=== PATIENT | female | born 1950 | race Caucasian/White ===

== ENCOUNTER 2024-02-20 22:26 | Inpatient (IN) | payer OTHER, MEDICAID ==
[~2024-02-20] VITALS: Ht 154.9 cm; Wt 71.3 kg
[2024-02-20 22:34] VITALS: BP_SYST 158; PULSE 66; RESP 12; RESP 32; TEMP 98.4; O2SAT 96
[2024-02-20] MEDS: ASPIRIN 325 MG TABLET PO ONE (23:00)
[2024-02-20 23:01] LABS: BASOPHILS % (AUTO) 0.4 % (0.0-2.0); EOSINOPHILS # (AUTO) 0.1 K/uL (0.0-0.4); EOSINOPHILS % (AUTO) 0.6 % (0.0-4.0); HEMATOCRIT 42.4 % (36-48); HEMOGLOBIN 14.8 g/dL (12.0-16.0); LYMPHOCYTES % (AUTO) 9.9 % (20.5-51.5); MEAN CORPUSCULAR HEMOGLOBIN 32 pg (27-31); MEAN CORPUSCULAR HGB CONC 35 % (32-36); MEAN CORPUSCULAR VOLUME 91 fL (79.0-98.0); MONOCYTES # (AUTO) 0.9 K/uL (0.0-1.0); MONOCYTES % (AUTO) 9.3 % (1.7-9.3); NEUTROPHILS % (AUTO) 79.8 % (40.0-70.0); PLATELET COUNT (AUTO) 184 K/uL (130-430); RED BLOOD CELL COUNT(AUTO) 4.65 MIL/uL (4.2-6.2); RED CELL DISTRIBUTION WIDTH 13.6 % (9.0-15.0)
[2024-02-20 23:29] LABS: ANION GAP 9 (5-15); CALCIUM 10.3 mg/dL (8.4-11.0); CARBON DIOXIDE 25 mmol/L (23-29); CHLORIDE 104 mmol/L (98-107); CREATININE 0.89 mg/dL (0.55-1.30); GLUCOSE 142 mg/dL (74-106); POTASSIUM 3.5 mmol/L (3.5-5.1); SODIUM SERUM 138 mmol/L (136-145); UREA NITROGEN, BLOOD 16 mg/dL (8-21)
[2024-02-21] VITALS (8 sets, daily range): BP systolic 112–134; PULSE 66–78; RESP 16–20; TEMP 97–98.7; O2SAT 97–98
[2024-02-21 00:14] LABS: PROTHROMBIN TIME 10.7 SECS (9.5-12.5)
[2024-02-21] MEDS ORDERED: ONDANSETRON HCL 4 MG/2 ML VIAL IVP PRN (00:30)
[2024-02-21] MEDS ORDERED: IBUP-1969 PO (00:43)
[2024-02-21] MEDS ORDERED: OMEG10006 PO (00:43)
[2024-02-21] MEDS ORDERED: HYDR25TA4 PO (00:43)
[2024-02-21] MEDS ORDERED: LOSA100T24 PO (00:43)
[2024-02-21] MEDS ORDERED: CYAN100097 PO (00:43)
[2024-02-21] MEDS ORDERED: LOVA40TA75 PO (00:43)
[2024-02-21] MEDS ORDERED: ASCO500T20 PO (00:43)
[2024-02-21] MEDS ORDERED: BETA1TAB20 PO (00:43)
[2024-02-21] MEDS ORDERED: VITA800012 PO (00:43)
[2024-02-21] MEDS ORDERED: CLOB50SO2 TP (00:43)
[2024-02-21] MEDS ORDERED: HYDR30CR79 TP (00:43)
[2024-02-21] MEDS ORDERED: ASPI-1393 PO (00:43)
[2024-02-21] MEDS: HEPARIN SODIUM,PORCINE 5,000 UNITS/ML VIAL IVP ONE ×2 (00:54→11:56)
[2024-02-21] MEDS: HEPARIN 25,000 UNITS/D5W 250ML 250 ML IV ONE (01:03)
[2024-02-21] MEDS: LISINOPRIL 10 MG TABLET (PRINIVIL) PO ONE (01:19)
[2024-02-21] MEDS: hydrALAZINE HCL 20 MG/ML VIAL IVP PRN (02:27)
[2024-02-21] MEDS: MORPHINE 2 MG/ML INJ. SYRINGE IVP PRN (02:28)
[2024-02-21 05:47] LABS: BASOPHILS % (AUTO) 0.1 % (0.0-2.0); EOSINOPHILS % (AUTO) 0.4 % (0.0-4.0); HEMATOCRIT 43.1 % (36-48); HEMOGLOBIN 14.7 g/dL (12.0-16.0); LYMPHOCYTES # (AUTO) 0.8 K/uL (1.0-5.5); LYMPHOCYTES % (AUTO) 7.4 % (20.5-51.5); MEAN CORPUSCULAR HEMOGLOBIN 31 pg (27-31); MEAN CORPUSCULAR HGB CONC 34 % (32-36); MEAN CORPUSCULAR VOLUME 92 fL (79.0-98.0); MONOCYTES # (AUTO) 1.1 K/uL (0.0-1.0); MONOCYTES % (AUTO) 9.7 % (1.7-9.3); NEUTROPHILS # (AUTO) 9.3 K/uL (1.8-7.7); NEUTROPHILS % (AUTO) 82.4 % (40.0-70.0); PLATELET COUNT (AUTO) 159 K/uL (130-430); RED CELL DISTRIBUTION WIDTH 13.5 % (9.0-15.0); WHITE BLOOD COUNT (AUTO) 11.3 K/uL (4.8-10.8)
[2024-02-21 06:29] LABS: ALANINE AMINOTRANSFERASE 34 U/L (12-78); ALBUMIN 3.3 g/dL (3.4-4.8); ANION GAP 8 (5-15); ASPARTATE AMINOTRANSFERASE 166 U/L (10-37); CALCIUM 9.7 mg/dL (8.4-11.0); CARBON DIOXIDE 25 mmol/L (23-29); CHLORIDE 103 mmol/L (98-107); CREATININE 0.89 mg/dL (0.55-1.30); GLUCOSE 121 mg/dL (74-106); SODIUM SERUM 136 mmol/L (136-145); TOTAL PROTEIN, SERUM 7.9 g/dL (6.4-8.3); UREA NITROGEN, BLOOD 14 mg/dL (8-21)
[2024-02-21] MEDS ORDERED: *HEPARIN PER PHARMACY XX ONE (06:45)
[2024-02-21] MEDS ORDERED: HEPARIN SODIUM,PORCINE 2000 UNITS/0.4 ML BOLUS IVP PRN (07:00)
[2024-02-21] MEDS ORDERED: HEPARIN SODIUM,PORCINE 3000 UNITS/0.6 ML BOLUS IVP PRN (07:00)
[2024-02-21] MEDS ORDERED: *HEPARIN PER PHARMACY XX PRN (07:00)
[2024-02-21] MEDS: HEPARIN 25,000 UNITS/D5W 250ML 250 ML IV PRN (07:26)
[2024-02-21 08:41] LABS: CHOLESTEROL 171 mg/dL (<200); HDL CHOLESTEROL 60 mg/dL (>55); TRIGLYCERIDES 75 mg/dL (30-150)
[2024-02-21] MEDS ORDERED: MORPHINE 2 MG/ML INJ. SYRINGE IVP PRN (09:00)
[2024-02-21] MEDS: METOPROLOL TARTRATE 25 MG TABLET PO SCH (09:00)
[2024-02-21] MEDS ORDERED: NALOXONE HCL 0.4 MG/ML AMP (NARCAN) IVP PRN (09:00)
[2024-02-21] MEDS: CYANOCOBALAMIN (VITAMIN B-12) 1,000 MCG TABLET PO SCH (09:10)
[2024-02-21] MEDS: ATORVASTATIN 20 MG TABLET PO SCH (09:10)
[2024-02-21] MEDS: ASPIRIN 81 MG TABLET(ECOTRIN) PO SCH (09:11)
[2024-02-21] MEDS: LISINOPRIL 10 MG TABLET (PRINIVIL) PO SCH (09:11)
[2024-02-21] MEDS: POTASSIUM CHLORIDE 20 MEQ/PKT PACKET PO ONE (10:48)
== END 2024-02-21 12:30 | disposition short-term general hospital (02) | DRG 282 ==
LOC: SED 22:26 → STU 02-21 00:30
PROVIDERS: ADMIT Family Medicine; ATTEND Family Medicine
DX: I21.4 Non-ST elevation (NSTEMI) myocardial infarction (principal); E78.5 Hyperlipidemia, unspecified; I10 Essential (primary) hypertension; I45.9 Conduction disorder, unspecified; E87.6 Hypokalemia; M32.9 Systemic lupus erythematosus, unspecified; F17.200 Nicotine dependence, unspecified, uncomplicated; Z79.899 Other long term (current) drug therapy; Z90.710 Acquired absence of both cervix and uterus
CPT/HCPCS: 36415; 70450-TC; 71045; 80048; 80053; 80061; 83880; 84484; 85025; 85610; 85651; 85730; 93005; 99291; G0378; J0360; J1644; J2270